=== PATIENT | male | born 1990 | race Two or more races ===

== ENCOUNTER 2017-07-06 17:59 | Emergency (ER) | payer MEDICAID, OTHER ==
[~2017-07-06] VITALS: Ht 170.2 cm; Wt 102.1 kg
[2017-07-06 18:15] VITALS: BP 148/71
== END 2017-07-06 19:35 | disposition home or self-care (01) ==
LOC: ER 17:59
DX: J02.9 Acute pharyngitis, unspecified (principal)

== ENCOUNTER 2021-04-23 16:59 | Emergency (ER) | payer BC, MEDICAID ==
[~2021-04-23] VITALS: Ht 170.2 cm; Wt 115.7 kg
[2021-04-23 21:30] VITALS: BP 137/84
== END 2021-04-23 22:32 | disposition home or self-care (01) ==
LOC: ER 16:59
DX: S62.396A Other fracture of fifth metacarpal bone, right hand, initial encounter for closed fracture (principal); E66.9 Obesity, unspecified; Z68.39 Body mass index [BMI] 39.0-39.9, adult; W22.8XXA Striking against or struck by other objects, initial encounter; Y93.89 Activity, other specified; Y92.89 Other specified places as the place of occurrence of the external cause; Y99.8 Other external cause status
CPT/HCPCS: 29125; 73130

== ENCOUNTER 2021-10-14 13:19 | Emergency (ER) | payer BC ==
[~2021-10-14] VITALS: Ht 170.2 cm; Wt 108.0 kg
[2021-10-14 15:44] LABS: Basophils # (auto) 0 10 ^3/uL (0-0.2); Basophils % (auto) 0.4 % (0.0-2.0); Eosinophils # (auto) 0 10 ^3/uL (0-0.8); Eosinophils % (auto) 0.1 % (0.0-7.0); Hematocrit 45.5 % (41.0-53.0); Lymphocytes # (auto) 2.4 10 ^3/uL (0.4-5.4); Lymphocytes % (auto) 17.8 % (10.0-50.0); Mean Corpuscular Volume 87.7 fL (80.0-100.0); Monocytes % (auto) 7.3 % (0.0-12.0); Neutrophils # (auto) 9.8 10 ^3/uL (1.6-8.6); Neutrophils % (auto) 74.4 % (37.0-80.0); Red Blood Cells 5.18 10^6/uL (4.5-5.90); Red Cell Distribution Width 13.3 % (11.8-14.3); White Blood Cell 13.2 10^3/uL (4.4-10.8)
[2021-10-14] MEDS ORDERED: FAMOTIDINE 20 MG TAB PO ONE (16:00)
[2021-10-14 16:02] LABS: Albumin 3.9 g/dL (3.4-5.0); Calcium 9.3 mg/dL (8.5-10.1); Potassium 3.9 mmol/L (3.5-5.1)
[2021-10-14 16:04] LABS: BUN/Creatinine Ratio 15.3
[2021-10-14 16:07] LABS: Bilirubin, Total 0.2 mg/dL (0.2-1.0); Total Protein 7.9 g/dL (6.4-8.2)
[2021-10-14 17:42] VITALS: BP 150/60
== END 2021-10-14 17:44 | disposition home or self-care (01) ==
LOC: ER 13:19
DX: R07.89 Other chest pain (principal)
CPT/HCPCS: 36415; 71045; 80053; 84484; 85025; 93005

== ENCOUNTER 2024-05-31 07:16 | Emergency (ER) | payer BC ==
[~2024-05-31] VITALS: Ht 167.6 cm; Wt 116.4 kg
--- NOTE | 2024-05-31 07:49 | ED.PDOC ---
History of Present Illness HPI Comments 34 [id number], with a Hx of morbid obesity, presents with complaints of abdominal pain, diarrhea, melena stools, subjective fever, and chills for 1 day, today. Patient reports shelby a "stomach bug," yesterday, with worsening pain all day at work. Patient comments on heavy, multiple diarrhea episodes within the past 24 hours and stools being "coffee-ground" in appearance. He admits to Pepto Bismol use, with minimal improvement to symptoms, initially. He endorses no recent sick contact. At time of assessment, he states on pain improving and being "mild," currently. He denies having any nausea, vomiting, urinary symptoms, or other associated symptoms at this time. Chief Complaint: Abdominal Pain Time Seen by MD: 07:25 Primary Care Provider: NONE Reviewed Notes: Nurses Notes, Medications, Allergies Allergies: Coded Allergies: NO KNOWN ALLERGIES (Unverified , 07/06/17) Information Source: Patient Mode of Arrival: Ambulatory Severity: Moderate Timing: Days Duration: Since onset Prehospital treatment: None Past Medical History Past Medical History (Other): morbid obesity Surgical History: Denies all surgeries Family History Family History: Reviewed,noncontributory to illness, No family hx of Cancer, No family hx of DM, No family hx of Heart adrianna, No family hx of HTN, No family hx ofKidney adrianna, No family hx of Liver adrianna, No family hx of Lung adrianna, No family hx of Stroke Social History Smoker: Non-Smoker Alcohol: Denies ETOH Use Drugs: Denies Drug Use Lives In: Home Constitutional: reports: chills, fever Gastrointestinal: reports: abdominal pain, diarrhea, melena Physical Exam General Appearance: No Apparent Distress, Obese HEENT: Normal ENT Inspection, Pharynx Normal, TMs Normal, Other (dry lips) Neck: Full Range of Motion, Non-Tender, Normal, Normal Inspection Respiratory: Chest Non-Tender, Lungs Clear, No Accessory Muscle Use, No Respiratory Distress, Normal Breath Sounds Cardiovascular: No Edema, No JVD, No Murmur, No Gallop, Normal Peripheral Pulses, Regular Rate/Rhythm Breast Exam: Deferred Gastrointestinal: No Organomegaly, Non Tender, No Pulsatile Mass, Normal Bowel Sounds, Soft Genitalia: Deferred Pelvic: Deferred Rectal: Deferred Extremities: No calf tenderness, Normal capillary refill, Normal inspection, Normal range of motion, Non-tender, No pedal edema Musculoskeletal : Apperance: Normal Neurologic: Alert, special police II-XII nml as Tested, No Motor Deficits, Normal Affect, Normal Mood, No Sensory Deficits Cerebellar Function: Normal Reflexes: Normal Skin: Dry, Normal Color, Warm Lymphatic: No Adenopathy Was a procedure done? Was a procedure done?: No Differential Dx Considerations may include: gastritis, gastroenteritis, GERD, PUD, viral syndrome, spoiled food, upper GI bleed X-Ray, Labs, Meds, VS Vital Signs Date Time Temp Pulse Resp B/P (MAP) Pulse Ox O2 Delivery O2 Flow Rate FiO2 05/31/24 08:02 92 18 125/81 (96) 97 05/31/24 07:53 16 Room Air* 0 21 05/31/24 07:24 96.1 100 16 123/84 (97) 97 Lab Test 05/31/24 08:31 Range/Units White Blood Count 10.0 4.4-10.8 10^3/uL Red Blood Count 5.02 4.5-5.90 10^6/uL Hemoglobin 14.8 13.5-17.5 g/dL Hematocrit 44.5 41.0-53.0 % Mean Corpuscular Volume 88.6 80.0-100.0 fL Mean Corpuscular Hemoglobin 29.5 28.0-32.0 pg Mean Corpuscular Hemoglobin Concent 33.4 32.0-36.0 g/dL Red Cell Distribution Width 13.5 11.8-14.3 % Platelet Count 299 140-450 10^3/uL Mean Platelet Volume 8.3 6.9-10.8 fL Neutrophils (%) (Auto) 64.8 37.0-80.0 % Lymphocytes (%) (Auto) 18.1 10.0-50.0 % Monocytes (%) (Auto) 16.6 H 0.0-12.0 % Eosinophils (%) (Auto) 0.3 0.0-7.0 % Basophils (%) (Auto) 0.2 0.0-2.0 % Neutrophils # (Auto) 6.5 1.6-8.6 10 ^3/uL Lymphocytes # (Auto) 1.8 0.4-5.4 10 ^3/uL Monocytes # (Auto) 1.7 H 0-1.3 10 ^3/uL Eosinophils # (Auto) 0 0-0.8 10 ^3/uL Basophils # (Auto) 0 0-0.2 10 ^3/uL Nucleated Red Blood Cells 0.1 % Lipase 33 12-53 U/L Current Medications Medications (Trade) Dose Ordered Sig/Krista Route Start Time Stop Time Status Last Admin Sodium Chloride 1,000 ml @ 1,000 mls/hr Q1H ONCE IVB 05/31/24 07:45 05/31/24 08:44 DC 05/31/24 08:01 Famotidine (Pepcid Tablet) 40 mg ONCE ONCE PO 05/31/24 07:45 05/31/24 07:46 DC 05/31/24 08:01 Time of 1ST Reevaluation: 07:55 Reevaluation 1ST: Unchanged Patient Education/Counseling: Diagnosis, Treatment Family Education/Counseling: No Family Present Additional Information The following tests were ordered, and results were reviewed by me: Labs - CBC, lipase Departure 1 Departure Time of Disposition: 09:10 Impression: Primary Impression: Acute gastroenteritis Additional Impressions: Nausea and vomiting Abdominal pain Dehydration Disposition: 01 HOME / SELF CARE / HOMELESS Condition: Fair e-Prescriptions Ondansetron Odt 4MG Tab (ZOFRAN PO) 4 Mg Tb 4 MG PO TID, #20 TAB ODT TAB-DISSOLVE IN MOUTH, THEN SWALLOW Prov: BARRY NI MD 05/31/24 Diphenoxylate W/ Atropine (Lomotil) 2.5 Mg Tab 1 TAB PO TID PRN for 10 Days, #30 TAB Prov: BARRY NI MD 05/31/24 Critical Care Note Critical Care Time?: No Stability Stability form required: No Heart Score Heart Score: Heart Score Response (Comments) Value History N/A 0 EKG N/A 0 Age N/A 0 Risk Factors N/A 0 Troponin N/A 0 Total 0 I personally scribed for BARRY NI MD ([email or web address]) on 05/31/24 at 07:49. Electronically submitted by Chris Zapata ([email or web address]). I personally scribed for BARRY NI MD ([email or web address]) on 05/31/24 at 09:12. Electronically submitted by Chris Zapata ([email or web address]). BARRY NI MD May 31, 2024 07:49
[2024-05-31 07:53] VITALS: RESP 16
[2024-05-31] MEDS: FAMOTIDINE 20 MG TAB PO ONE (08:01)
[2024-05-31] MEDS: SODIUM CHLORIDE 0.9% 1,000 ML IVB ONE (08:01)
[2024-05-31 08:02] VITALS: BP 125/81; PULSE 92; RESP 18; O2SAT 97
[2024-05-31 08:38] LABS: Basophils # (auto) 0 10 ^3/uL (0-0.2); Basophils % (auto) 0.2 % (0.0-2.0); Eosinophils # (auto) 0 10 ^3/uL (0-0.8); Eosinophils % (auto) 0.3 % (0.0-7.0); Hematocrit 44.5 % (41.0-53.0); Hemoglobin 14.8 g/dL (13.5-17.5); Lymphocytes # (auto) 1.8 10 ^3/uL (0.4-5.4); Lymphocytes % (auto) 18.1 % (10.0-50.0); Mean Corpuscular Hemoglobin 29.5 pg (28.0-32.0); Mean Corpuscular Hgb Conc. 33.4 g/dL (32.0-36.0); Mean Corpuscular Volume 88.6 fL (80.0-100.0); Monocytes # (auto) 1.7 10 ^3/uL (0-1.3); Monocytes % (auto) 16.6 % (0.0-12.0); Neutrophils # (auto) 6.5 10 ^3/uL (1.6-8.6); Neutrophils % (auto) 64.8 % (37.0-80.0); Nucleated Red Blood Cells % 0.1 %; Platelet Count (auto) 299 10^3/uL (140-450); Red Blood Cells 5.02 10^6/uL (4.5-5.90); Red Cell Distribution Width 13.5 % (11.8-14.3)
[2024-05-31] MEDS ORDERED: ZOFR4T PO (09:15)
[2024-05-31] MEDS ORDERED: DIPH2.5T73 PO ×2 (09:15→09:23)
== END 2024-05-31 09:34 | disposition home or self-care (01) ==
LOC: ER 07:16
DX: K52.9 Noninfective gastroenteritis and colitis, unspecified (principal); R11.2 Nausea with vomiting, unspecified; E86.0 Dehydration
CPT/HCPCS: 36415; 83690; 85025; 96360; 99283; J7030

== ENCOUNTER 2024-10-25 12:28 | Inpatient (IN) | payer BC ==
[~2024-10-25] VITALS: Ht 167.6 cm; Wt 114.3 kg
[~2024-10-25 12:28] MED LIST: ZOFR4T PO
[2024-10-25 15:16] LABS: Basophils # (auto) 0 10 ^3/uL (0-0.2); Basophils % (auto) 0.2 % (0.0-2.0); Eosinophils # (auto) 0 10 ^3/uL (0-0.8); Hematocrit 43.1 % (41.0-53.0); Hemoglobin 14.9 g/dL (13.5-17.5); Lymphocytes # (auto) 1.4 10 ^3/uL (0.4-5.4); Lymphocytes % (auto) 8.4 % (10.0-50.0); Mean Corpuscular Hgb Conc. 34.6 g/dL (32.0-36.0); Mean Corpuscular Volume 86.7 fL (80.0-100.0); Monocytes % (auto) 6.1 % (0.0-12.0); Neutrophils # (auto) 13.8 10 ^3/uL (1.6-8.6); Neutrophils % (auto) 85.3 % (37.0-80.0); Platelet Count (auto) 327 10^3/uL (140-450); Red Blood Cells 4.96 10^6/uL (4.5-5.90); Red Cell Distribution Width 13.1 % (11.8-14.3); White Blood Cell 16.2 10^3/uL (4.4-10.8)
[2024-10-25 15:28] LABS: Chloride 103 mmol/L (98-107); Potassium 3.9 mmol/L (3.5-5.1); Sodium 137 mmol/L (136-145)
[2024-10-25 15:29] LABS: Anion Gap 8 (5-15); Carbon Dioxide 26 mmol/L (20-31)
[2024-10-25 15:30] LABS: Calcium 9.8 mg/dL (8.7-10.4)
[2024-10-25 15:34] LABS: Blood Urea Nitrogen 13 mg/dL (9-23)
[2024-10-25 15:35] LABS: Glucose 151 mg/dL (74-106)
--- NOTE | 2024-10-25 16:52 | DVH ---
Procedure: CT CT AB PEL WITH IV CON ONLY 10/25/2024 04:06 PM Indication: Rectal pain. Suspect abscess formation. Comparison Study: None Technique: Axial images were obtained and reformatted in coronal and sagittal planes. All CT scans at this medical facility are performed using dose modulation techniques as appropriate to a performed e xam including the following: Automated exposure control was utilized; adjustment of the MA and/or KV according to patient size; and use of iterative reconstruction technique. CT Dose: CTDI volume is 25 mGy. Dose-length product is 17 14 mGy*cm FINDINGS: Lower Chest: Unremarkable. Hepatobiliary: Cholelithiasis with no evidence of cholecystitis. Hepatic steatosis noted. Spleen: Unremarkable. Pancreas: Unremarkable. Adrenal Glands: Unremarkable. tract: The kidneys are normal in size bilaterally without hydronephrosis or nephrolithiasis. The u rinary bladder is unremarkable. GI tract: The stomach is grossly normal in appearance. No evidence of small bowel obstruction. Scatte red colonic diverticula are noted without evidence of diverticulitis. A 3 x 2.3 x 1.2 cm collection o f air and fluid noted posterior to the anal sphincter with mild adjacent fat stranding lying skin thi ckening. Lymphatics: No mesenteric, retroperitoneal or periportal lymphadenopathy. Vasculature: The abdominal aorta is normal in caliber. Pelvic Organs: Unremarkable Bones/soft tissues: No acute abnormality. Other: None. IMPRESSION: 1. Perianal abscess measuring 3 x 2.3 cm and overlying cellulitis. 2. Scattered colonic diverticula without evidence of diverticulitis. 3. Cholelithiasis with no evidence of cholecystitis. 4. Hepatic steatosis.
--- NOTE | 2024-10-25 17:27 | ED.PDOC ---
General HPI Comments This is a pleasant 34-year-old male with no MHx that presents for a possible rectal abscess. Symptoms started last Friday and has been progressively worsening since. Has never had this before. Unable to get adequate relief with [id number] Tylenol and Motrin. No associated symptoms. Last bowel movement was yesterday and normal. Denies any blood in the stool. Denies fevers chills nausea vomiting diarrhea or drainage from the affected side. Denies any history of diabetes HIV. Denies tobacco alcohol and drugs Chief Complaint: Rectal Pain Time Seen by MD: 13:31 Primary Care Provider: RUEL Reviewed notes: Nurses Notes, Medications, Allergies Allergies: Coded Allergies: NO KNOWN ALLERGIES (Unverified , 07/06/17) Information Source: Patient Mode of Arrival: Ambulatory Past Medical History PAST MEDICAL HISTORY: Denies Surgical History: Denies all surgeries Family History Family History: Reviewed,noncontributory to illness, No family hx of Cancer, No family hx of DM, No family hx of Heart adrianna, No family hx of HTN, No family hx ofKidney adrianna, No family hx of Liver adrianna, No family hx of Lung adrianna, No family hx of Stroke Social History Smoker: Non-Smoker Alcohol: Denies ETOH Use Drugs: Denies Drug Use Lives In: Home All Other Systems: Reviewed and Negative (PER HPI) Physical Exam General Appearance: No Apparent Distress, Normal HEENT: Normal ENT Inspection, Pharynx Normal, TMs Normal Neck: Full Range of Motion, Non-Tender, Normal, Normal Inspection Respiratory: Chest Non-Tender, Lungs Clear, No Accessory Muscle Use, No Respiratory Distress, Normal Breath Sounds Cardiovascular: No Edema, No JVD, No Murmur, No Gallop, Normal Peripheral Pulses, Regular Rate/Rhythm Breast Exam: Deferred Gastrointestinal: No Organomegaly, Non Tender, No Pulsatile Mass, Normal Bowel Sounds, Soft Genitalia: Deferred Pelvic: Deferred Rectal: Tenderness (Noticeable erythema warmth and tenderness to the perineum. No open wound.) Extremities: No calf tenderness, Normal capillary refill, Normal inspection, Normal range of motion, Non-tender, No pedal edema Musculoskeletal : Apperance: Normal Neurologic: Alert, expense clerk II-XII nml as Tested, No Motor Deficits, Normal Affect, Normal Mood, No Sensory Deficits Cerebellar Function: Normal Reflexes: Normal Skin: Dry, Normal Color, Warm Lymphatic: No Adenopathy Was a procedure done? Was a procedure done?: No Differential Diagnosis Kidney stone (Female): Other X-Ray, Labs, Meds, VS Vital Signs Date Time Temp Pulse Resp B/P (MAP) Pulse Ox O2 Delivery O2 Flow Rate FiO2 10/25/24 18:49 18 98 Room Air* 0 21 10/25/24 17:55 98.7 85 16 117/63 (81) 97 98.7 10/25/24 15:56 98.7 99 16 124/62 (82) 96 98.7 10/25/24 13:00 97.3 102 16 122/59 (80) 96 97.3 Lab Test 10/25/24 14:53 Range/Units White Blood Count 16.2 H 4.4-10.8 10^3/uL Red Blood Count 4.96 4.5-5.90 10^6/uL Hemoglobin 14.9 13.5-17.5 g/dL Hematocrit 43.1 41.0-53.0 % Mean Corpuscular Volume 86.7 80.0-100.0 fL Mean Corpuscular Hemoglobin 30.0 28.0-32.0 pg Mean Corpuscular Hemoglobin Concent 34.6 32.0-36.0 g/dL Red Cell Distribution Width 13.1 11.8-14.3 % Platelet Count 327 140-450 10^3/uL Mean Platelet Volume 8.1 6.9-10.8 fL Neutrophils (%) (Auto) 85.3 H 37.0-80.0 % Lymphocytes (%) (Auto) 8.4 L 10.0-50.0 % Monocytes (%) (Auto) 6.1 0.0-12.0 % Eosinophils (%) (Auto) 0.0 0.0-7.0 % Basophils (%) (Auto) 0.2 0.0-2.0 % Neutrophils # (Auto) 13.8 H 1.6-8.6 10 ^3/uL Lymphocytes # (Auto) 1.4 0.4-5.4 10 ^3/uL Monocytes # (Auto) 1.0 0-1.3 10 ^3/uL Eosinophils # (Auto) 0 0-0.8 10 ^3/uL Basophils # (Auto) 0 0-0.2 10 ^3/uL Nucleated Red Blood Cells 0.0 % Sodium Level 137 136-145 mmol/L Potassium Level 3.9 3.5-5.1 mmol/L Chloride Level 103 98-107 mmol/L Carbon Dioxide Level 26 20-31 mmol/L Anion Gap 8 5-15 Blood Urea Nitrogen 13 9-23 mg/dL Creatinine 0.81 0.700-1.30 mg/dL Glomerular Filtration Rate Calc 119 >90 mL/min BUN/Creatinine Ratio 16.0 10.0-20.0 Serum Glucose 151 H 74-106 mg/dL Calcium Level 9.8 8.7-10.4 mg/dL PATIENT: KARLIE JULIO JR CACCT: [id number]: [id number] : 1990 LOC: ER ROOM / BED: / AGE / SEX: 34 / M ADM STATUS: REG ER SERVICE [id number] ORDERING PHYSICIAN: LORENZO FRANZ NP PROCEDURE(s): ABPLIV - CT AB PEL WITH IV CON ONLY REASON: Rectal pain. Suspect abscess formation. ORDER NUMBER(s): [id number], ACCESSION NUMBER(s): [id number] Procedure: CT CT AB PEL WITH IV CON ONLY 10/25/2024 04:06 PM Indication: Rectal pain. Suspect abscess formation. Comparison Study: None Technique: Axial images were obtained and reformatted in coronal and sagittal planes. All CT scans at this medical facility are performed using dose modulation techniques as appropriate to a performed exam including the following: Automated exposure control was utilized; adjustment of the MA and/or KV according to patient size; and use of iterative reconstruction technique. CT Dose: CTDI volume is 25 mGy. Dose-length product is 17 14 mGy*cm FINDINGS: Lower Chest: Unremarkable. Hepatobiliary: Cholelithiasis with no evidence of cholecystitis. Hepatic steatosis noted. Spleen: Unremarkable. Pancreas: Unremarkable. Adrenal Glands: Unremarkable. tract: The kidneys are normal in size bilaterally without hydronephrosis or nephrolithiasis. The urinary bladder is unremarkable. GI tract: The stomach is grossly normal in appearance. No evidence of small bowel obstruction. Scattered colonic diverticula are noted without evidence of diverticulitis. A 3 x 2.3 x 1.2 cm collection of air and fluid noted posterior to the anal sphincter with mild adjacent fat stranding lying skin thickening. Lymphatics: No mesenteric, retroperitoneal or periportal lymphadenopathy. Vasculature: The abdominal aorta is normal in caliber. Pelvic Organs: Unremarkable Bones/soft tissues: No acute abnormality. Other: None. IMPRESSION: 1. Perianal abscess measuring 3 x 2.3 cm and overlying cellulitis. 2. Scattered colonic diverticula without evidence of diverticulitis. 3. Cholelithiasis with no evidence of cholecystitis. 4. Hepatic steatosis. ATED BY: MARY CHESTER MD DICTATED DATE/TIME: 10/25/241649 SIGNED BY: MARY CHESTER MD SIGNED DATE/TIME: 10/25/241649 CC: X-Ray, Labs, Meds, VS Comment This is a pleasant 34-year-old male with no MHx that presents for a possible rectal abscess. Patient arrives alert and oriented, ABC's intact, afebrile, vital signs stable, saturating well in room air After ROS and physical examination, differentials considered but not limited to: Erysipelas cellulitis, abscess formation Peripheral IV insertion+ labs were ordered. Labs show WBCs 16.2, neutrophils 85.3, Abdomen pelvis CT with the con ordered and findings show: Perianal abscess measuring 3 x 2.3 cm and overlying cellulitis. In the ER the patient received IV antibiotics. Patient received vanco per pharmacy, Zosyn, 1 L normal saline The patient's workup reveals that the patient needs further evaluation and/or treatment for the above medical conditions. Patient verbalized understanding of the above and is awaiting further evaluation by the admitting service. Time of 1ST Reevaluation: 17:16 Reevaluation 1ST: Improved Patient Education/Counseling: Diagnosis, Treatment Family Education/Counseling: Diagnosis, Treatment Departure 1 Departure Time of Disposition: 17:25 Impression: Primary Impression: Perianal abscess Additional Impression: Cellulitis Qualified Codes: L03.90 - Cellulitis, unspecified Disposition: ADMITTED INPATIENT Condition: Serious Critical Care Note Critical Care Time?: No Stability Stability form required: No Heart Score Heart Score: Heart Score Response (Comments) Value History N/A 0 EKG N/A 0 Age N/A 0 Risk Factors N/A 0 Troponin N/A 0 Total 0 LORENZO FRANZ NP October 25, 2024 17:27
[2024-10-25] MEDS ORDERED: VANCOMYCIN PER PHARMACY 0 MG IV SCH (17:30)
[2024-10-25] MEDS: SODIUM CHLORIDE 0.9% 1,000 ML IV ONE (18:47)
[2024-10-25] MEDS: VANCOMYCIN 1GM/200ML PM 250 ML IV SCH (18:47)
[2024-10-25 18:49] VITALS: RESP 18; O2SAT 98
[2024-10-25] MEDS ORDERED: ACETAMINOPHEN 325 MG TAB PO PRN (19:45)
[2024-10-25] MEDS ORDERED: ONDANSETRON HCL 4 MG/2 ML VIAL IV PRN (19:45)
[2024-10-25] MEDS ORDERED: TEMAZEPAM 15 MG CAP PO PRN (19:45)
[2024-10-25 20:38] LABS: Sodium 137 mmol/L (136-145)
[2024-10-25 20:39] LABS: Anion Gap 9 (5-15); Carbon Dioxide 21 mmol/L (20-31)
[2024-10-25 20:40] LABS: Calcium 9.6 mg/dL (8.7-10.4)
[2024-10-25 20:45] LABS: BUN/Creatinine Ratio 13.2 (10.0-20.0)
[2024-10-25 20:47] LABS: INR 1.05 (0.9-1.15); Partial Thromboplastin Time 27.2 SEC (24.5-34.5); Prothrombin Time 11.1 sec (9.3-11.8)
[2024-10-25 21:12] LABS: Blood Urea Nitrogen 9 mg/dL (9-23); Chloride 107 mmol/L (98-107); Glucose 118 mg/dL (74-106)
[2024-10-25] MEDS: cefTRIAXone 1GM/50ML D5W 50 ML IV ONE (21:57)
[2024-10-25 22:25] VITALS: BP 136/78; PULSE 91; RESP 18; TEMP 98.2; O2SAT 97
[2024-10-26 01:19] VITALS: BP 130/72; PULSE 80; RESP 18; TEMP 98.6; O2SAT 98
[2024-10-26] MEDS: HYDROcodone-ACET 5/325MG TAB PO PRN (01:28)
[2024-10-26 04:56] LABS: Basophils # (auto) 0 10 ^3/uL (0-0.2); Basophils % (auto) 0.2 % (0.0-2.0); Eosinophils # (auto) 0 10 ^3/uL (0-0.8); Eosinophils % (auto) 0.1 % (0.0-7.0); Hematocrit 40.2 % (41.0-53.0); Hemoglobin 13.4 g/dL (13.5-17.5); Lymphocytes # (auto) 2.3 10 ^3/uL (0.4-5.4); Lymphocytes % (auto) 15.9 % (10.0-50.0); Mean Corpuscular Hemoglobin 28.9 pg (28.0-32.0); Mean Corpuscular Hgb Conc. 33.4 g/dL (32.0-36.0); Mean Corpuscular Volume 86.6 fL (80.0-100.0); Monocytes # (auto) 1.3 10 ^3/uL (0-1.3); Monocytes % (auto) 8.6 % (0.0-12.0); Neutrophils # (auto) 11.1 10 ^3/uL (1.6-8.6); Neutrophils % (auto) 75.2 % (37.0-80.0); Nucleated Red Blood Cells % 0.1 %; Platelet Count (auto) 331 10^3/uL (140-450); Red Blood Cells 4.64 10^6/uL (4.5-5.90); Red Cell Distribution Width 13.3 % (11.8-14.3); White Blood Cell 14.7 10^3/uL (4.4-10.8)
--- NOTE | 2024-10-26 05:04 | DVHHP2 ---
History of Present Illness Reason for Visit: Rectal pain History of Present Illness 34-year-old male presents for evaluation of rectal pain with possible abscess. Patient reports a six day history of worsening rectal pain that is not being relieved with mawf-iup-nrbbzgj medication. Denies history of abscess to the perianal area. No fever or chills. Past Medical History Denies Past Surgical History Denies Family History Noncontributory Smoke: No ALCOHOL: occassional Drugs: None Lives: with Family Review of Systems Review of Systems Review of systems are currently negative otherwise addressed in HPI. Allergies: Coded Allergies: NO KNOWN ALLERGIES (Unverified , 07/06/17) Medications Current Medications Medications Dose Ordered Sig/Krista Route Start Time Stop Time Status Last Admin Dose Admin Vancomycin HCl 0 ml @ 0 mls/hr UD IV 10/25/24 17:30 Ceftriaxone Sodium 50 ml @ 100 mls/hr DAILY@09 IV 10/26/24 09:00 Acetaminophen/ Hydrocodone Bitart 1 tab Q4HP PRN PO 10/25/24 19:45 10/26/24 01:28 1 TAB Temazepam 15 mg QHSP PRN PO 10/25/24 19:45 Ondansetron HCl 4 mg Q4HP PRN IV 10/25/24 19:45 Acetaminophen 650 mg Q6HP PRN PO 10/25/24 19:45 Morphine Sulfate 2 mg Q6HPRN PRN IV 10/25/24 19:45 Vancomycin HCl 350 ml @ 200 mls/hr Q12H IV 10/26/24 08:00 Exam Vital Signs Vital Signs Date Time Temp Pulse Resp B/P (MAP) Pulse Ox O2 Delivery O2 Flow Rate FiO2 10/26/24 01:19 98.6 80 18 130/72 (91) 98 98.6 10/25/24 18:49 Room Air* 0 21 Exam Gen: 34-year-old male in mild distress. Skin: Warm, dry, normal color and texture, no rash. HEENT: Normocephalic atraumatic, mucous membranes moist and pink. Neck: Cervical and supraclavicular nodes normal without enlargement, trachea is midline, thyroid gland is normal without masses. Pulmonary: Clear to auscultation and percussion bilaterally. Cardiac: Regular rate and rhythm. No murmur Rectal: Erythema and tenderness Abdomen: Soft, nontender, nondistended, bowel sounds present all 4 quadrants, no guarding, no rigidity, no organomegaly. Extremities: No cyanosis, clubbing, no edema Neuro: Cranial nerves II through XII grossly intact, normal affect and speech, no focal motor deficits. Labs/Xrays ORDERING PHYSICIAN: LORENZO FRANZ NP PROCEDURE(s): ABPLIV - CT AB PEL WITH IV CON ONLY REASON: Rectal pain. Suspect abscess formation. ORDER NUMBER(s): [id number], ACCESSION NUMBER(s): [id number] Procedure: CT CT AB PEL WITH IV CON ONLY 10/25/2024 04:06 PM Indication: Rectal pain. Suspect abscess formation. Comparison Study: None Technique: Axial images were obtained and reformatted in coronal and sagittal planes. All CT scans at this medical facility are performed using dose modulation techniques as appropriate to a performed exam including the following: Automated exposure control was utilized; adjustment of the MA and/or KV according to patient size; and use of iterative reconstruction technique. CT Dose: CTDI volume is 25 mGy. Dose-length product is 17 14 mGy*cm FINDINGS: Lower Chest: Unremarkable. Hepatobiliary: Cholelithiasis with no evidence of cholecystitis. Hepatic steatosis noted. Spleen: Unremarkable. Pancreas: Unremarkable. Adrenal Glands: Unremarkable. tract: The kidneys are normal in size bilaterally without hydronephrosis or nephrolithiasis. The urinary bladder is unremarkable. GI tract: The stomach is grossly normal in appearance. No evidence of small bowel obstruction. Scattered colonic diverticula are noted without evidence of diverticulitis. A 3 x 2.3 x 1.2 cm collection of air and fluid noted posterior to the anal sphincter with mild adjacent fat stranding lying skin thickening. Lymphatics: No mesenteric, retroperitoneal or periportal lymphadenopathy. Vasculature: The abdominal aorta is normal in caliber. Pelvic Organs: Unremarkable Bones/soft tissues: No acute abnormality. Other: None. IMPRESSION: 1. Perianal abscess measuring 3 x 2.3 cm and overlying cellulitis. 2. Scattered colonic diverticula without evidence of diverticulitis. 3. Cholelithiasis with no evidence of cholecystitis. 4. Hepatic steatosis. Labs Test 10/26/24 04:15 10/25/24 20:10 10/25/24 14:53 Range/Units Prothrombin Time 11.1 9.3-11.8 sec Prothrombin Time INR 1.05 0.9-1.15 Activated Partial Thromboplast Time 27.2 24.5-34.5 SEC Sodium Level 137 136-145 mmol/L Potassium Level 4.0 3.5-5.1 mmol/L Chloride Level 107 98-107 mmol/L Carbon Dioxide Level 21 20-31 mmol/L Anion Gap 9 5-15 Blood Urea Nitrogen 9 9-23 mg/dL BUN/Creatinine Ratio 13.2 10.0-20.0 Serum Glucose 118 H 74-106 mg/dL Calcium Level 9.6 8.7-10.4 mg/dL Eosinophils (%) (Auto) 0.0 0.0-7.0 % Eosinophils # (Auto) 0 0-0.8 10 ^3/uL Basophils # (Auto) 0 0-0.2 10 ^3/uL Nucleated Red Blood Cells 0.0 % Assessment/Plan Assessment/Plan Assessment Perianal abscess Leukocytosis Plan Admit the patient to [facility] to the hospitalist Rocephin/vancomycin Surgical consult Pain management Continue treatment per orders Plan discussed with: Patient My Orders Orders - NOLAN MCCORD Procedure Category Date Status Time Ceftriaxone 1gm/50ml PHA 10/26/24 In Process D5w (Rocephin) 09:00 Blood Culture JACLYN 10/25/24 In Process 19:39 * Surgical Consult CONS 10/25/24 Transmitted Regular Diet DIET 10/26/24 Transmitted Breakfast Admit ADMIT 10/25/24 Transmitted 19:39 Hydrocodone-Acet PHA 10/25/24 In Process 5/325mg Tab ([place] 19:45 Temazepam (Restoril) PHA 10/25/24 In Process 19:45 Ondansetron Hcl PHA 10/25/24 In Process (Zofran) 19:45 Condition: Stable ROXY 10/25/24 In Process 19:39 Acetaminophen Tablet PHA 10/25/24 In Process (Tylenol Tablet) 19:45 Bedrest With Bathroom ROXY 10/25/24 In Process Privileg 19:39 Morphine Sulfate PHA 10/25/24 In Process Injection 19:45 Date of Service: October 25, 2024 Billing Provider: NOLAN MCCORD Common Visit Codes: 74609-[id number] INP/OBS CARE (MOD) NOLAN MCCORD AGACNP October 26, 2024 05:04
[2024-10-26 05:29] VITALS: BP 124/66; PULSE 82; RESP 18; TEMP 98.3; O2SAT 97
[2024-10-26] MEDS: MORPHINE SULFATE INJ 2 MG/ml SYRG IV PRN (05:41)
[2024-10-26 08:19] LABS: Magnesium 2.2 mg/dL (1.6-2.6)
[2024-10-26 08:30] LABS: Blood Alcohol < 3.0 mg/dL (<10); INR 1.07 (0.9-1.15); Partial Thromboplastin Time 28.9 SEC (24.5-34.5); Prothrombin Time 11.3 sec (9.3-11.8)
[2024-10-26 08:43] VITALS: BP 99/54; PULSE 65; RESP 16; TEMP 98.1; O2SAT 95
--- NOTE | 2024-10-26 09:14 | DVHPNRES ---
Progress Note Date Seen: October 26, 2024 Resident Creating Document: YOHAN GRAHAM RESIDENT Has the PT tested + for MRSA If YES, has PT been informed?: No Medical Necessity Reason Pt with a Central, PICC or Fol: No Subjective Review of Systems Timmy Callahan JR Is a 34-year-old male with a no significant PMH presented to the ED with the chief complaints of rectal swelling and pain since 2 days prior to admission. Patient reported on Friday while wiping his rectal area he felt soft from like mass and gradually he observed that history is getting bigger and for last 2 days it has been having more painful and yesterday patient wiping he observed blood and pus which brought him to visit ED. Patient seen and examined at the bedside. Patient reported developing his rectal area leading to blood and pus along with the pain. CT abdominal pelvis showed perianal abscess along with the overlying cellulitis. Surgical consult pending Objective vital signs Vital Sign Date Time Temp Pulse Resp B/P (MAP) Pulse Ox O2 Delivery O2 Flow Rate FiO2 10/26/24 08:43 98.1 65 16 99/54 (69) 95 98.1 10/25/24 18:49 Room Air* 0 21 Total Intake and Output 10/25/24 10/25/24 10/26/24 15:00 23:00 07:00 Intake Total 1300 ml Balance 1300 ml medications Current Medications Medications Dose Ordered Sig/Krista Route Start Time Stop Time Status Last Admin Dose Admin Vancomycin HCl 0 ml @ 0 mls/hr UD IV 10/25/24 17:30 Ceftriaxone Sodium 50 ml @ 100 mls/hr DAILY@09 IV 10/26/24 09:00 Acetaminophen/ Hydrocodone Bitart 1 tab Q4HP PRN PO 10/25/24 19:45 10/26/24 01:28 1 TAB Temazepam 15 mg QHSP PRN PO 10/25/24 19:45 Ondansetron HCl 4 mg Q4HP PRN IV 10/25/24 19:45 Acetaminophen 650 mg Q6HP PRN PO 10/25/24 19:45 Morphine Sulfate 2 mg Q6HPRN PRN IV 10/25/24 19:45 10/26/24 05:41 2 MG Vancomycin HCl 350 ml @ 200 mls/hr Q12H IV 10/26/24 08:00 Examination Pt is lying on bed General Appearance: Alert, Oriented X3, Cooperative, Not in acute distress HEENT: Atraumatic, Mucous membranes moist/pink Respiratory: Clear to auscultation, Normal air movement, No added sounds Cardiovascular: Regular rate, Normal S1, Normal S2, No murmurs Abdominal: Active bowel sounds, Soft, no distention, no tenderness Extremities: No edema, Normal pulses, No tenderness/swelling Skin: No Significant rash, except past surgical scars Neuro: Normal speech, sensorimotor deficits none Psych/Mental Status: Mental status NL, Mood NL Rectal: Showed abscess like structure with a blood, redness, tender Nurse was there as sharperone during examination laboratory and microbiology Laboratory Tests 10/26/24 04:15 10/25/24 20:10 Test 10/25/24 20:10 Range/Units Serum Glucose 118 H 74-106 mg/dL Labs and/or images reviewed: Labs reviewed by me, Image(s) reviewed by me Problem List/Assessment/Plan Problem List/Assessment/Plan # ? sentinel hemorrhoid infection v/s perianal abscess # sepsis likely from above - evident on physical exam and CT abdominal pelvis - currently on Rocephin and vancomycin - ordered blood cultures - surgical consult # colonic diverticulosis - dietary management # asymptomatic cholelithiasis - outpatient follow up # hepatic steatosis - outpatient follow up with the GI No GI PPX No VTE PPX since patient is ambulatory Regular diet Goals of care discussed with the patient for more than 29 minutes: Full code status Case discussed with Dr. Lafleur, patient and nurse Plan discussed with: Patient My Orders My Orders Orders - YOHAN GRAHAM Procedure Category Date Status Time Acute Hepatitis Panel LAB 10/26/24 In Process 07:47 Drug Screen LAB 10/26/24 Logged 07:47 Urinalysis LAB 10/26/24 Logged 07:47 * Surgical Consult CONS 10/26/24 Transmitted 09:04 Date of Service: October 26, 2024 Billing Provider: DEISY PULIDO MD Common Visit Codes: [id number] INP/OBS CARE(HIGH) YOHAN GRAHAM October 26, 2024 09:14 DEISY PULIDO MD October 31, 2024 02:05
[2024-10-26] MEDS: VANCOMYCIN 1.75GM/350ML 350 ML IV SCH (11:16)
[2024-10-26 13:04] VITALS: BP 93/60; PULSE 73; RESP 12; TEMP 98.4; O2SAT 100
[2024-10-26] MEDS: cefTRIAXone 1GM/50ML D5W 50 ML IV SCH (14:41)
[2024-10-26 21:21] VITALS: BP 116/67; PULSE 75; RESP 18; TEMP 98.4; O2SAT 100
[2024-10-26 21:39] LABS: Urine Bacteria None Seen /hpf (None Seen)
[2024-10-26 21:51] LABS: Urine Blood Negative /uL (Negative); Urine Clarity Clear (Clear); Urine Color Light-Yellow (Yellow); Urine Mucus FEW (None Seen); Urine Protein, UAD Negative (Negative); Urine Specific Gravity 1.009 (1.001-1.035); Urine Squamous Epithelial Cell None Seen /hpf (<5); Urine Urobilinogen Normal (Negative); Urine WBC < 1 /HPF (0-3); Urine pH 5.5 (5.0-9.0)
[2024-10-26 22:03] LABS: Opiate Scree,Urine Neg (NEGATIVE)
[2024-10-26 22:51] LABS: Amphetamine Screen, Urine Neg (NEGATIVE); Barbiturate Scree,Urine Neg (NEGATIVE); Benzodiazephine Screen, Urine Neg (NEGATIVE); Cannabinoid Screen, Urine Neg (NEGATIVE); Cocaine Screen, Urine Neg (NEGATIVE); Phencyclidine Screen, Urine Neg (NEGATIVE)
[2024-10-26 23:02] VITALS: PULSE 75; PULSE 76; RESP 18; O2SAT 100; O2SAT 97
[2024-10-27] VITALS (9 sets, daily range): BP systolic 98–114; BP diastolic 55–75; PULSE 64–82; RESP 16–20; TEMP 97.7–98.6; O2SAT 95–100
[2024-10-27 07:36] LABS: Basophils # (auto) 0 10 ^3/uL (0-0.2); Basophils % (auto) 0.3 % (0.0-2.0); Eosinophils # (auto) 0.1 10 ^3/uL (0-0.8); Eosinophils % (auto) 0.5 % (0.0-7.0); Hematocrit 43.2 % (41.0-53.0); Hemoglobin 14.4 g/dL (13.5-17.5); Lymphocytes # (auto) 2.4 10 ^3/uL (0.4-5.4); Lymphocytes % (auto) 20.5 % (10.0-50.0); Mean Corpuscular Hemoglobin 29.1 pg (28.0-32.0); Mean Corpuscular Hgb Conc. 33.2 g/dL (32.0-36.0); Mean Corpuscular Volume 87.6 fL (80.0-100.0); Monocytes % (auto) 8.3 % (0.0-12.0); Neutrophils # (auto) 8.1 10 ^3/uL (1.6-8.6); Neutrophils % (auto) 70.4 % (37.0-80.0); Platelet Count (auto) 306 10^3/uL (140-450); Red Blood Cells 4.93 10^6/uL (4.5-5.90); Red Cell Distribution Width 13.2 % (11.8-14.3); White Blood Cell 11.6 10^3/uL (4.4-10.8)
[2024-10-27 07:43] LABS: Anion Gap 9 (5-15); Carbon Dioxide 27 mmol/L (20-31); Chloride 105 mmol/L (98-107); Potassium 4.3 mmol/L (3.5-5.1); Sodium 141 mmol/L (136-145)
[2024-10-27 07:44] LABS: Calcium 10.1 mg/dL (8.7-10.4)
[2024-10-27 07:49] LABS: Glucose 105 mg/dL (74-106)
[2024-10-27 07:50] LABS: BUN/Creatinine Ratio 16.4 (10.0-20.0); Blood Urea Nitrogen 12 mg/dL (9-23)
[2024-10-27 10:27] LABS: Hepatitis A Ab IgM Negative; Hepatitis B Core IgM Negative (Negative); Hepatitis B Surface Antigen Negative (Negative); Hepatitis C Antibody Negative (Negative)
--- NOTE | 2024-10-27 11:16 | DVHPNRES ---
Progress Note Date Seen: October 27, 2024 Resident Creating Document: YOHAN GRAHAM RESIDENT Has the PT tested + for MRSA If YES, has PT been informed?: No Medical Necessity Reason Pt with a Central, PICC or Fol: No Subjective Review of Systems Patient seen and examined at the bedside. Patient reported improvement in his symptoms since admission. Patient reported mild blood when he went to the defecation. Pending surgical consult. Objective vital signs Vital Sign Date Time Temp Pulse Resp B/P (MAP) Pulse Ox O2 Delivery O2 Flow Rate FiO2 10/27/24 09:00 97.8 72 20 113/62 (79) 95 97.8 10/26/24 23:02 Room Air* 0 21 Total Intake and Output 10/26/24 10/26/24 10/27/24 15:00 23:00 07:00 Intake Total 350 ml 50 ml 0 ml Balance 350 ml 50 ml 0 ml medications Current Medications Medications Dose Ordered Sig/Krista Route Start Time Stop Time Status Last Admin Dose Admin Vancomycin HCl 0 ml @ 0 mls/hr UD IV 10/25/24 17:30 Ceftriaxone Sodium 50 ml @ 100 mls/hr DAILY@09 IV 10/26/24 09:00 10/26/24 14:41 100 MLS/HR Acetaminophen/ Hydrocodone Bitart 1 tab Q4HP PRN PO 10/25/24 19:45 10/26/24 01:28 1 TAB Temazepam 15 mg QHSP PRN PO 10/25/24 19:45 Ondansetron HCl 4 mg Q4HP PRN IV 10/25/24 19:45 Acetaminophen 650 mg Q6HP PRN PO 10/25/24 19:45 Morphine Sulfate 2 mg Q6HPRN PRN IV 10/25/24 19:45 10/26/24 05:41 2 MG Vancomycin HCl 350 ml @ 200 mls/hr Q12H IV 10/26/24 08:00 10/27/24 09:04 200 MLS/HR Examination Pt is lying on bed General Appearance: Alert, Oriented X3, Cooperative, Not in acute distress HEENT: Atraumatic, Mucous membranes moist/pink Respiratory: Clear to auscultation, Normal air movement, No added sounds Cardiovascular: Regular rate, Normal S1, Normal S2, No murmurs Abdominal: Active bowel sounds, Soft, no distention, no tenderness Extremities: No edema, Normal pulses, No tenderness/swelling Skin: No Significant rash, except past surgical scars Neuro: Normal speech, sensorimotor deficits none Psych/Mental Status: Mental status NL, Mood NL Rectal: Showed abscess like structure with a blood, redness, tender Nurse was there as sharperone during examination laboratory and microbiology Laboratory Tests 10/27/24 06:59 Test 10/27/24 06:59 Range/Units Serum Glucose 105 74-106 mg/dL Microbiology Date/Time Source Procedure Growth Status 10/25/24 20:30 Blood Blood Culture - Preliminary NO GROWTH AFTER 24 HOURS OF INCUBATION. Resulted Labs and/or images reviewed: Labs reviewed by me, Image(s) reviewed by me Problem List/Assessment/Plan Problem List/Assessment/Plan # ? sentinel hemorrhoid infection v/s perianal abscess # sepsis likely from above - evident on physical exam and CT abdominal pelvis - currently on Rocephin and vancomycin - ordered blood cultures - surgical consult # colonic diverticulosis - dietary management # asymptomatic cholelithiasis - outpatient follow up # hepatic steatosis - outpatient follow up with the GI for # Vit D deficiency - Repleting No GI PPX No VTE PPX since patient is ambulatory Regular diet Goals of care discussed with the patient for more than 29 minutes: Full code status Case discussed with Dr. Lafleur, patient and nurse Plan discussed with: Patient My Orders My Orders Orders - YOHAN GRAHAM Procedure Category Date Status Time * Wound Consult CONS 10/27/24 Transmitted Date of Service: October 27, 2024 Billing Provider: DEISY PULIDO MD Common Visit Codes: [id number] INP/OBS CARE(HIGH) YOHAN GRAHAM October 27, 2024 11:16 DEISY PULIDO MD October 31, 2024 03:08
--- NOTE | 2024-10-27 21:22 | DVHINCON2 ---
Date of service: October 27, 2024 Family History: Diabetes mellitus G8 MOTHER FH: anemia G8 MOTHER Allergies: Coded Allergies: NO KNOWN ALLERGIES (Unverified , 07/06/17) Vital Signs Vital Signs Date Time Temp Pulse Resp B/P (MAP) Pulse Ox O2 Delivery O2 Flow Rate FiO2 10/27/24 17:00 98.4 73 20 109/55 (73) 98 98.4 10/27/24 07:30 Room Air* 0 21 Labs/Diagnostic Data Labs Test 10/27/24 06:59 10/26/24 21:00 10/26/24 08:38 10/26/24 04:15 Range/Units White Blood Count 11.6 H 4.4-10.8 10^3/uL Red Blood Count 4.93 4.5-5.90 10^6/uL Hemoglobin 14.4 13.5-17.5 g/dL Hematocrit 43.2 41.0-53.0 % Mean Corpuscular Volume 87.6 80.0-100.0 fL Mean Corpuscular Hemoglobin 29.1 28.0-32.0 pg Mean Corpuscular Hemoglobin Concent 33.2 32.0-36.0 g/dL Red Cell Distribution Width 13.2 11.8-14.3 % Platelet Count 306 140-450 10^3/uL Mean Platelet Volume 8.3 6.9-10.8 fL Neutrophils (%) (Auto) 70.4 37.0-80.0 % Lymphocytes (%) (Auto) 20.5 10.0-50.0 % Monocytes (%) (Auto) 8.3 0.0-12.0 % Eosinophils (%) (Auto) 0.5 0.0-7.0 % Basophils (%) (Auto) 0.3 0.0-2.0 % Neutrophils # (Auto) 8.1 1.6-8.6 10 ^3/uL Lymphocytes # (Auto) 2.4 0.4-5.4 10 ^3/uL Monocytes # (Auto) 1.0 0-1.3 10 ^3/uL Eosinophils # (Auto) 0.1 0-0.8 10 ^3/uL Basophils # (Auto) 0 0-0.2 10 ^3/uL Nucleated Red Blood Cells 0.0 % Sodium Level 141 136-145 mmol/L Potassium Level 4.3 3.5-5.1 mmol/L Chloride Level 105 98-107 mmol/L Carbon Dioxide Level 27 20-31 mmol/L Anion Gap 9 5-15 Blood Urea Nitrogen 12 9-23 mg/dL Creatinine 0.73 0.700-1.30 mg/dL Glomerular Filtration Rate Calc 122 >90 mL/min BUN/Creatinine Ratio 16.4 10.0-20.0 Serum Glucose 105 74-106 mg/dL Calcium Level 10.1 8.7-10.4 mg/dL Vancomycin Level Trough 11.2 H 5-10 ug/mL Urine Color Light-yellow Yellow Urine Clarity Clear Clear Urine pH 5.5 5.0-9.0 Urine Specific [place] 1.009 1.001-1.035 Urine Protein Negative Negative Urine Ketones 1+ H Negative Urine Blood Negative Negative /uL Urine Nitrite Negative Negative Urine Bilirubin Negative Negative Urine Urobilinogen Normal Negative mg/dL Urine Leukocyte Esterase Negative Negative /uL Urine RBC None seen 0 - 3 /hpf Urine Microscopic WBC < 1 0-3 /HPF Urine Squamous Epithelial Cells None seen <5 /hpf Urine Bacteria None seen None Seen /hpf Urine Mucus Few None Seen Urine Glucose Normal Normal mg/dL Urine Opiates Screen Neg NEGATIVE Urine Fentanyl Screen Neg NEGATIVE Urine Barbiturates Screen Neg NEGATIVE Urine Phencyclidine Screen Neg NEGATIVE Urine Amphetamines Screen Neg NEGATIVE Urine Benzodiazepines Screen Neg NEGATIVE Urine Cocaine Screen Neg NEGATIVE Urine Cannabinoids Screen Neg NEGATIVE Lactic Acid Level 0.8 0.4-2.0 mmol/L Prothrombin Time 11.3 9.3-11.8 sec Prothrombin Time INR 1.07 0.9-1.15 Activated Partial Thromboplast Time 28.9 24.5-34.5 SEC Hemoglobin A1c 5.7 <5.7 % A1C Magnesium Level 2.2 1.6-2.6 mg/dL Vitamin B12 Level 584 211-911 pg/mL Vitamin D 25-Hydroxy 11.3 L 30.0-100 ng/mL Thyroid Stimulating Hormone (TSH) 1.97 0.55-4.78 uIU/mL Plasma/Serum Blood Alcohol < 3.0 <10 mg/dL Hepatitis A IgM Antibody Negative Hepatitis B Surface Antigen Negative Negative Hepatitis B Core IgM Antibody Negative Negative Hepatitis C Antibody Negative Negative HIV (1&2) Antibody Negative Negative Microbiology Date/Time Source Procedure Growth Status 10/25/24 20:30 Blood Blood Culture - Preliminary NO GROWTH AFTER 48 HOURS OF INCUBATION. Resulted Assessment [id number] AFEBRILE NO SIGNIFICANT PERIANAL PAIN SWELLING DRAINAGE OF FLUID NOTED RESOLVING PERIANAL CELLULITIS/ABSCESS NO INDICATION FOR URGENT SURGERY CONTINUE CLOSE OBSERVATION NPO IV ABX Plan discussed with: Patient ECHO LOCKHART MD October 27, 2024 21:22
[2024-10-28] VITALS (8 sets, daily range): BP systolic 106–122; BP diastolic 56–80; PULSE 62–90; RESP 16–19; TEMP 97.6–98.7; O2SAT 96–98
--- NOTE | 2024-10-28 00:15 | DVHINCON2 ---
DATE OF CONSULTATION: 10/27/2024 HISTORY OF PRESENT ILLNESS: This patient is 34 years old, coming in with pain, perianal location, now feeling much better. He initially had some swelling, but now the swelling has resolved and the drainage has been ongoing. It is now feeling better. No fever or chills. PAST MEDICAL HISTORY: No diabetes or hypertension. PAST SURGICAL HISTORY: No significant surgical history. PHYSICAL EXAMINATION: VITAL SIGNS: Afebrile. Stable signs. HEENT: With no evidence of pallor, cyanosis or jaundice. NECK: Supple, nontender, with no thyromegaly or lymphadenopathy. CHEST AND LUNGS: Clear. HEART: Within normal limits. ABDOMEN: Soft, nontender. No rebound. RECTAL: Perianal examination reveals no evidence of cellulitis or mature abscess noted in the perianal location. Some fluid collection noted on the CAT scan. Apparently, that seems to have been drained and clinically does not appear to have any perianal cellulitis or abscess at this point. NEUROLOGIC: Not assessed. EXTREMITIES: Unremarkable. CLINICAL IMPRESSION: Resolving perianal abscess, cellulitis. PLAN: Would be to continue IV antibiotics. Close observation. No indication for urgent surgery at this time. MD JONNY Wolf/VITA TID: [id number] RECEIPT: [id number] cc: Bradford Koenig NP
[2024-10-28 07:45] LABS: Basophils # (auto) 0 10 ^3/uL (0-0.2); Basophils % (auto) 0.3 % (0.0-2.0); Eosinophils # (auto) 0.1 10 ^3/uL (0-0.8); Eosinophils % (auto) 0.7 % (0.0-7.0); Hematocrit 45.3 % (41.0-53.0); Hemoglobin 15.2 g/dL (13.5-17.5); Lymphocytes # (auto) 2.8 10 ^3/uL (0.4-5.4); Lymphocytes % (auto) 28.8 % (10.0-50.0); Mean Corpuscular Hemoglobin 29.3 pg (28.0-32.0); Mean Corpuscular Hgb Conc. 33.5 g/dL (32.0-36.0); Mean Corpuscular Volume 87.3 fL (80.0-100.0); Monocytes # (auto) 0.7 10 ^3/uL (0-1.3); Monocytes % (auto) 7.4 % (0.0-12.0); Neutrophils % (auto) 62.8 % (37.0-80.0); Nucleated Red Blood Cells % 0.1 %; Platelet Count (auto) 342 10^3/uL (140-450); Red Blood Cells 5.19 10^6/uL (4.5-5.90); Red Cell Distribution Width 13.1 % (11.8-14.3); White Blood Cell 9.6 10^3/uL (4.4-10.8)
--- NOTE | 2024-10-28 11:05 | DVHPNRES ---
Progress Note Date Seen: October 28, 2024 Resident Creating Document: YOHAN GRAHAM RESIDENT Has the PT tested + for MRSA If YES, has PT been informed?: No Medical Necessity Reason Pt with a Central, PICC or Fol: No Subjective Review of Systems Patient seen and examined at the bedside. Patient reported improvement in his symptoms since admission, reported no new complaints. furniture sales consultant evaluated the patient and advised conservative management and advised to keep him NPO along with IV antibiotics. Objective vital signs Vital Sign Date Time Temp Pulse Resp B/P (MAP) Pulse Ox O2 Delivery O2 Flow Rate FiO2 10/28/24 09:00 97.6 75 17 122/56 (78) 97 97.6 10/28/24 07:30 Room Air* 0 21 Total Intake and Output 10/27/24 10/27/24 10/28/24 15:00 23:00 07:00 Intake Total 400 ml 800 ml 410 ml Balance 400 ml 800 ml 410 ml medications Current Medications Medications Dose Ordered Sig/Krista Route Start Time Stop Time Status Last Admin Dose Admin Vancomycin HCl 0 ml @ 0 mls/hr UD IV 10/25/24 17:30 Ceftriaxone Sodium 50 ml @ 100 mls/hr DAILY@09 IV 10/26/24 09:00 10/27/24 12:01 100 MLS/HR Acetaminophen/ Hydrocodone Bitart 1 tab Q4HP PRN PO 10/25/24 19:45 10/26/24 01:28 1 TAB Temazepam 15 mg QHSP PRN PO 10/25/24 19:45 Ondansetron HCl 4 mg Q4HP PRN IV 10/25/24 19:45 Acetaminophen 650 mg Q6HP PRN PO 10/25/24 19:45 Morphine Sulfate 2 mg Q6HPRN PRN IV 10/25/24 19:45 10/26/24 05:41 2 MG Vancomycin HCl 350 ml @ 200 mls/hr Q12H IV 10/26/24 08:00 10/28/24 08:20 200 MLS/HR Examination Pt is lying on bed General Appearance: Alert, Oriented X3, Cooperative, Not in acute distress HEENT: Atraumatic, Mucous membranes moist/pink Respiratory: Clear to auscultation, Normal air movement, No added sounds Cardiovascular: Regular rate, Normal S1, Normal S2, No murmurs Abdominal: Active bowel sounds, Soft, no distention, no tenderness Extremities: No edema, Normal pulses, No tenderness/swelling Skin: No Significant rash, except past surgical scars Neuro: Normal speech, sensorimotor deficits none Psych/Mental Status: Mental status NL, Mood NL Rectal: Showed abscess like structure with a blood, redness, tender Nurse was there as sharperone during examination laboratory and microbiology Laboratory Tests 10/28/24 06:47 10/27/24 06:59 Test 10/27/24 06:59 Range/Units Serum Glucose 105 74-106 mg/dL Microbiology Date/Time Source Procedure Growth Status 10/25/24 20:30 Blood Blood Culture - Preliminary NO GROWTH AFTER 48 HOURS OF INCUBATION. Resulted Labs and/or images reviewed: Labs reviewed by me, Image(s) reviewed by me Problem List/Assessment/Plan Problem List/Assessment/Plan # ? sentinel hemorrhoid infection v/s perianal abscess # sepsis likely from above - evident on physical exam and CT abdominal pelvis - currently on Rocephin and vancomycin - ordered blood cultures - surgical consult, conservative management for now, IV antibiotics and NPO # colonic diverticulosis - dietary management # asymptomatic cholelithiasis - outpatient follow up # hepatic steatosis - outpatient follow up with the GI for # Vit D deficiency - Repleting No GI PPX No VTE PPX since patient is ambulatory NPO Goals of care discussed with the patient for more than 29 minutes: Full code status Case discussed with Dr. Lafleur, patient and nurse Plan discussed with: Patient My Orders My Orders Orders - YOHAN GRAHAM Procedure Category Date Status Time * Surgical Consult CONS 10/27/24 Transmitted Date of Service: October 28, 2024 Billing Provider: DEISY PULIDO MD Common Visit Codes: [id number] INP/OBS CARE(HIGH) YOHAN GRAHAM October 28, 2024 11:05 DEISY PULIDO MD October 31, 2024 03:15
--- NOTE | 2024-10-28 22:20 | DVHPN2 ---
Progress Note Date Seen: October 28, 2024 Has the PT tested + for MRSA If YES, has PT been informed?: No Medical Necessity Reason Pt with a Central, PICC or Fol: No Objective vital signs Vital Sign Date Time Temp Pulse Resp B/P (MAP) Pulse Ox O2 Delivery O2 Flow Rate FiO2 10/28/24 21:00 97.7 76 19 119/75 (90) 96 97.7 10/28/24 07:30 Room Air* 0 21 Total Intake and Output 10/27/24 10/27/24 10/28/24 15:00 23:00 07:00 Intake Total 400 ml 800 ml 410 ml Balance 400 ml 800 ml 410 ml medications Current Medications Medications Dose Ordered Sig/Krista Route Start Time Stop Time Status Last Admin Dose Admin Vancomycin HCl 0 ml @ 0 mls/hr UD IV 10/25/24 17:30 Ceftriaxone Sodium 50 ml @ 100 mls/hr DAILY@09 IV 10/26/24 09:00 10/28/24 12:15 100 MLS/HR Acetaminophen/ Hydrocodone Bitart 1 tab Q4HP PRN PO 10/25/24 19:45 10/26/24 01:28 1 TAB Temazepam 15 mg QHSP PRN PO 10/25/24 19:45 Ondansetron HCl 4 mg Q4HP PRN IV 10/25/24 19:45 Acetaminophen 650 mg Q6HP PRN PO 10/25/24 19:45 Morphine Sulfate 2 mg Q6HPRN PRN IV 10/25/24 19:45 10/26/24 05:41 2 MG Vancomycin HCl 350 ml @ 200 mls/hr Q12H IV 10/26/24 08:00 10/28/24 21:16 200 MLS/HR laboratory and microbiology Laboratory Tests 10/28/24 06:47 10/27/24 06:59 Test 10/27/24 06:59 Range/Units Serum Glucose 105 74-106 mg/dL Microbiology Date/Time Source Procedure Growth Status 10/25/24 20:30 Blood Blood Culture - Preliminary NO GROWTH AFTER 72 HOURS OF INCUBATION. Resulted Problem List/Assessment/Plan Problem List/Assessment/Plan AFEBRILE VSS NO CLINICAL PERIANAL ABSCESS CELLULITIS RESOLVING CONTINUE ABX CLEARED FOR DISCHARGE Plan discussed with: Patient My Orders My Orders Orders - ECHO LOCKHART MD Procedure Category Date Status Time Clear Liq Diet DIET 10/28/24 Transmitted Dinner ECHO LOCKHART MD October 28, 2024 22:20
[2024-10-29 01:00] VITALS: BP 119/67; PULSE 82; RESP 18; TEMP 97.9; O2SAT 99
[2024-10-29 05:00] VITALS: BP 105/67; PULSE 69; RESP 18; TEMP 97.7; O2SAT 97
[2024-10-29 07:41] LABS: Anion Gap 9 (5-15); Calcium 9.9 mg/dL (8.7-10.4); Carbon Dioxide 23 mmol/L (20-31); Chloride 106 mmol/L (98-107); Potassium 3.7 mmol/L (3.5-5.1); Sodium 138 mmol/L (136-145)
[2024-10-29 07:47] LABS: BUN/Creatinine Ratio 9.2 (10.0-20.0); Basophils # (auto) 0 10 ^3/uL (0-0.2); Basophils % (auto) 0.4 % (0.0-2.0); Eosinophils # (auto) 0.1 10 ^3/uL (0-0.8); Eosinophils % (auto) 0.6 % (0.0-7.0); Glucose 97 mg/dL (74-106); Hematocrit 43.7 % (41.0-53.0); Hemoglobin 14.6 g/dL (13.5-17.5); Lymphocytes # (auto) 2.9 10 ^3/uL (0.4-5.4); Lymphocytes % (auto) 31.2 % (10.0-50.0); Mean Corpuscular Hemoglobin 29.4 pg (28.0-32.0); Mean Corpuscular Hgb Conc. 33.3 g/dL (32.0-36.0); Mean Corpuscular Volume 88.4 fL (80.0-100.0); Monocytes # (auto) 0.8 10 ^3/uL (0-1.3); Monocytes % (auto) 8.1 % (0.0-12.0); Neutrophils # (auto) 5.5 10 ^3/uL (1.6-8.6); Neutrophils % (auto) 59.7 % (37.0-80.0); Nucleated Red Blood Cells % 0.1 %; Platelet Count (auto) 338 10^3/uL (140-450); Red Blood Cells 4.94 10^6/uL (4.5-5.90); Red Cell Distribution Width 13.1 % (11.8-14.3); White Blood Cell 9.2 10^3/uL (4.4-10.8)
[2024-10-29 07:51] LABS: Blood Urea Nitrogen 6 mg/dL (9-23)
[2024-10-29 08:00] VITALS: PULSE 69; RESP 25; O2SAT 98
[2024-10-29 09:30] VITALS: BP 110/66; PULSE 89; RESP 25; TEMP 97.9; O2SAT 98
[2024-10-29 12:53] VITALS: BP 122/54; PULSE 86; RESP 22; TEMP 97.9; O2SAT 96
[2024-10-29] MEDS ORDERED: AUG875T PO (12:57)
[2024-10-29 13:52] VITALS: TEMP 36.6
[2024-10-29] MEDS ORDERED: ERGO1CAP23 PO (16:07)
--- NOTE | 2024-10-29 16:12 | DVHDSRES ---
Discharge Summary Date of Admission Resident Creating Document: YOHAN GRAHAM RESIDENT October 25, 2024 at 19:39 Date of Discharge: October 29, 2024 Admitting Diagnosis Perianal pain Labs/Diagnostic Data: Laboratory Results Test 10/29/24 06:17 10/28/24 18:50 10/26/24 21:00 10/26/24 08:38 White Blood Count 9.2 10^3/uL (4.4-10.8) Red Blood Count 4.94 10^6/uL (4.5-5.90) Hemoglobin 14.6 g/dL (13.5-17.5) Hematocrit 43.7 % (41.0-53.0) Mean Corpuscular Volume 88.4 fL (80.0-100.0) Mean Corpuscular Hemoglobin 29.4 pg (28.0-32.0) Mean Corpuscular Hemoglobin Concent 33.3 g/dL (32.0-36.0) Red Cell Distribution Width 13.1 % (11.8-14.3) Platelet Count 338 10^3/uL (140-450) Mean Platelet Volume 8.8 fL (6.9-10.8) Neutrophils (%) (Auto) 59.7 % (37.0-80.0) Lymphocytes (%) (Auto) 31.2 % (10.0-50.0) Monocytes (%) (Auto) 8.1 % (0.0-12.0) Eosinophils (%) (Auto) 0.6 % (0.0-7.0) Basophils (%) (Auto) 0.4 % (0.0-2.0) Neutrophils # (Auto) 5.5 10 ^3/uL (1.6-8.6) Lymphocytes # (Auto) 2.9 10 ^3/uL (0.4-5.4) Monocytes # (Auto) 0.8 10 ^3/uL (0-1.3) Eosinophils # (Auto) 0.1 10 ^3/uL (0-0.8) Basophils # (Auto) 0 10 ^3/uL (0-0.2) Nucleated Red Blood Cells 0.1 % Sodium Level 138 mmol/L (136-145) Potassium Level 3.7 mmol/L (3.5-5.1) Chloride Level 106 mmol/L (98-107) Carbon Dioxide Level 23 mmol/L (20-31) Anion Gap 9 (5-15) Blood Urea Nitrogen 6 mg/dL (9-23) Creatinine 0.65 mg/dL (0.700-1.30) Glomerular Filtration Rate Calc 127 mL/min (>90) BUN/Creatinine Ratio 9.2 (10.0-20.0) Serum Glucose 97 mg/dL (74-106) Calcium Level 9.9 mg/dL (8.7-10.4) Vancomycin Level Trough 12.2 ug/mL (5-10) Urine Color Light-yellow (Yellow) Urine Clarity Clear (Clear) Urine pH 5.5 (5.0-9.0) Urine Specific [place] 1.009 (1.001-1.035) Urine Protein Negative (Negative) Urine Ketones 1+ (Negative) Urine Blood Negative /uL (Negative) Urine Nitrite Negative (Negative) Urine Bilirubin Negative (Negative) Urine Urobilinogen Normal mg/dL (Negative) Urine Leukocyte Esterase Negative /uL (Negative) Urine RBC None seen /hpf (0 - 3) Urine Microscopic WBC < 1 /HPF (0-3) Urine Squamous Epithelial Cells None seen /hpf (<5) Urine Bacteria None seen /hpf (None Seen) Urine Mucus Few (None Seen) Urine Glucose Normal mg/dL (Normal) Urine Opiates Screen Neg (NEGATIVE) Urine Fentanyl Screen Neg (NEGATIVE) Urine Barbiturates Screen Neg (NEGATIVE) Urine Phencyclidine Screen Neg (NEGATIVE) Urine Amphetamines Screen Neg (NEGATIVE) Urine Benzodiazepines Screen Neg (NEGATIVE) Urine Cocaine Screen Neg (NEGATIVE) Urine Cannabinoids Screen Neg (NEGATIVE) Lactic Acid Level 0.8 mmol/L (0.4-2.0) Test 10/26/24 04:15 Prothrombin Time 11.3 sec (9.3-11.8) Prothrombin Time INR 1.07 (0.9-1.15) Activated Partial Thromboplast Time 28.9 SEC (24.5-34.5) Hemoglobin A1c 5.7 % A1C (<5.7) Magnesium Level 2.2 mg/dL (1.6-2.6) Vitamin B12 Level 584 pg/mL (211-911) Vitamin D 25-Hydroxy 11.3 ng/mL (30.0-100) Thyroid Stimulating Hormone (TSH) 1.97 uIU/mL (0.55-4.78) Plasma/Serum Blood Alcohol < 3.0 mg/dL (<10) Hepatitis A IgM Antibody Negative Hepatitis B Surface Antigen Negative (Negative) Hepatitis B Core IgM Antibody Negative (Negative) Hepatitis C Antibody Negative (Negative) HIV (1&2) Antibody Negative (Negative) Other Laboratory Tests 10/29/24 06:17 Brief Hx & Hospital Course: Timmy Callahan Jr., a 34-year-old male with no significant past medical history, presented to the Emergency Department with a 2-day history of rectal swelling and pain. The patient reported initially noticing a soft, mass-like sensation in the rectal area while wiping, which progressively enlarged and became increasingly painful. On the day prior to admission, he observed blood and pus discharge, prompting his visit to the ED. The patient was admitted with concerns of a perianal abscess & cellulitis, complicated by sepsis, as evidenced by physical examination and imaging Physical examination and CT imaging confirmed a perianal abscess measuring 3 x 2.3 cm with overlying cellulitis, along with scattered colonic diverticula, cholelithiasis, and hepatic steatosis. The patient was started on IV Rocephin and Vancomycin, and blood cultures were obtained. A surgical consultation was conducted, and conservative management was initiated with IV antibiotics, NPO status initially, and gradual dietary advancement. Additional findings included colonic diverticulosis, managed with dietary modifications; asymptomatic cholelithiasis and hepatic steatosis, both requiring outpatient GI & surgery follow-up; and vitamin D deficiency, for which repletion was started. The patient showed clinical improvement, remained hemodynamically stable, and was discharged in good condition. He was advised to maintain perianal hygiene, avoid prolonged sitting, and adopt healthy lifestyle modifications including diet and exercise. Follow-up with his primary care provider and surgical clinic was recommended. Pt is lying on bed General Appearance: Alert, Oriented X3, Cooperative, Not in acute distress HEENT: Atraumatic, Mucous membranes moist/pink Respiratory: Clear to auscultation, Normal air movement, No added sounds Cardiovascular: Regular rate, Normal S1, Normal S2, No murmurs Abdominal: Active bowel sounds, Soft, no distention, no tenderness Extremities: No edema, Normal pulses, No tenderness/swelling Skin: No Significant rash, except past surgical scars Neuro: Normal speech, sensorimotor deficits none Psych/Mental Status: Mental status NL, Mood NL Rectal: Showed abscess like structure with a blood, redness, tender Nurse was there as sharperone during examination Operations or Procedures CT CT AB PEL WITH IV CON ONLY 10/25/2024 04:06 PM IMPRESSION: 1. Perianal abscess measuring 3 x 2.3 cm and overlying cellulitis. 2. Scattered colonic diverticula without evidence of diverticulitis. 3. Cholelithiasis with no evidence of cholecystitis. 4. Hepatic steatosis. Condition at Discharge: Stable Final Diagnosis/Problems List # Perianal abscess / cellulitis # Sepsis likely from above # colonic diverticulosis # Asymptomatic cholelithiasis # hepatic steatosis # Vit D deficiency Discharge Disposition: Home Discharge Instruct/Medications Diet: Regular Activity: No Restrictions, As Tolerated Follow Up/Referral: PCP Surgery clinic Medications: Augumentin 875 2 times daily for 7 days Vitamin-D 69754 units once weekly Discharge Statement: "Patient was advised to return to the ER or call 911 if any headaches, dizziness, shortness of breath, chest pain, abdominal pain, bleeding, fevers, or worsening of medical condition. Patient was counseled about treatment plan, medications, possible side effects, patientverbalized understanding. All questions were answered to the best of my ability. This discharge took greater then 30 minutes in planning, reviewing documentation, counseling the patient, and discussing with other team members." ASSESSMENT ASSESSMENT Assessment # Perianal abscess / cellulitis # Sepsis likely from above # colonic diverticulosis # Asymptomatic cholelithiasis # hepatic steatosis # Vit D deficiency Date of Service: October 29, 2024 Billing Provider: DEISY PULIDO MD Common Visit Codes: 86796-GEI/OBS DISCH DAY >30min YOHAN GRAHAM October 29, 2024 16:12 DEISY PULIDO MD November 01, 2024 00:33
== END 2024-10-29 17:00 | disposition home or self-care (01) | DRG 872 ==
LOC: ER 12:35 → OVERFLOW 19:39 → WEST WING 10-26 21:21
PROVIDERS: ADMIT Student in an Organized Health Care Education/Training Program; ATTEND Surgery
DX: A41.9 Sepsis, unspecified organism (principal); K61.0 Anal abscess; L03.315 Cellulitis of perineum; K57.30 Diverticulosis of large intestine without perforation or abscess without bleeding; K80.20 Calculus of gallbladder without cholecystitis without obstruction; K76.0 Fatty (change of) liver, not elsewhere classified; E55.9 Vitamin D deficiency, unspecified; Z83.3 Family history of diabetes mellitus; Z83.2 Family history of diseases of the blood and blood-forming organs and certain disorders involving the immune mechanism
CPT/HCPCS: 36415; 74177; 80048; 80074; 80202; 80307; 80320; 81001; 82306; 82565; 82607; 83036; 83605; 83735; 84443; 85025; 85610; 85730; 86703; 87040; 96361; 96365; G0378